=== PATIENT | male | born 1960 | race Caucasian/White ===

== ENCOUNTER 2018-09-04 12:24 | Inpatient (IN) | payer OTHER ==
[~2018-09-04] VITALS: Ht 188 cm; Wt 120.6 kg
[2018-09-04] MEDS ORDERED: SODIUM CHLORIDE 0.9% 1,000 ML IV ONE (12:53)
[2018-09-04] MEDS ORDERED: ASPirin 81 mg TAB PO ONE (13:00)
[2018-09-04 13:33] LABS: Basophils # (auto) 0 uL; Basophils % (auto) 0.2 % (0.0-2.0); Eosinophils # (auto) 0.2 uL; Eosinophils % (auto) 1.3 % (0.0-7.0); Hematocrit 43.6 % (41.0-53.0); Hemoglobin 14.9 g/dL (13.5-17.5); Lymphocytes # (auto) 0.9 uL; Lymphocytes % (auto) 6.9 % (10.0-50.0); Mean Corpuscular Hemoglobin 31.8 pg (28.0-32.0); Mean Corpuscular Hgb Conc. 34.3 g/dL (32.0-36.0); Mean Corpuscular Volume 92.7 fL (80.0-100.0); Monocytes # (auto) 0.7 uL; Monocytes % (auto) 5.6 % (0.0-12.0); Neutrophils # (auto) 11.3 uL; Nucleated Red Blood Cells % 0.3 %; Platelet Count (auto) 151 10^3/uL (140-450); White Blood Cell 13.1 10^3/uL (4.4-10.8)
[2018-09-04 13:50] LABS: INR 1.08 (0.9-1.15)
[2018-09-04 14:27] LABS: Alanine Aminotransferase 26 U/L (16-61); Albumin 3.5 g/dL (3.4-5.0); Anion Gap 7 (5-15); Aspartate Aminotransferase 15 U/L (15-37); BUN/Creatinine Ratio 16.7; Blood Urea Nitrogen 22 mg/dL (7-18); Calcium 8.3 mg/dL (8.5-10.1); Carbon Dioxide 22 mmol/L (21-32); Chloride 110 mmol/L (98-107); GFR African American 71 mL/min; GFR Non-African American 59 mL/min; Glucose 148 mg/dL (74-106); Potassium 3.8 mmol/L (3.5-5.1); Sodium 139 mmol/L (136-145)
[2018-09-04 14:30] LABS: Alkaline Phosphatase 63 U/L (45-117); Total Protein 6.4 g/dL (6.4-8.2)
[2018-09-04 16:24] LABS: Urine Bacteria NONE SEEN /hpf (None Seen); Urine Blood Negative /uL (Negative); Urine Mucus FEW (None Seen); Urine Specific Gravity 1.021 (1.001-1.035); Urine WBC 2 /hpf (0 - 3)
[2018-09-04] MEDS ORDERED: ONDANSETRON HCL 4 MG/2 ML VIAL IV PRN (19:15)
[2018-09-04] MEDS ORDERED: HYDROcodone-ACET 5/325MG TAB PO PRN (19:15)
[2018-09-04] MEDS ORDERED: ACETAMINOPHEN 500 MG TAB PO PRN (19:15)
[2018-09-04] MEDS ORDERED: MORPHINE SULF INJ 2 MG/ML SYRINGE 1ML IV PRN ×2 (19:15)
[2018-09-04 21:14] VITALS: BP 138/84
--- NOTE | 2018-09-04 21:35 | NUR ---
Telemetry admit from [facility] admitted to Telemetry unit. Patient oriented to Yoselyn Galvez, primary RN, unit, room, bed, and unit policies regarding patient care and visiting hours. Patient now on continuous telemetry monitoring, tele box #[id number] and telemetry reading on arrival to unit is NSR. Patient placed on bedside oxygen, weighed by bedscale and encouraged to call if they need something. All questions and concerns addressed, patient verbalized understanding. Note: patient is alert and oriented x 4. On room air with even and unlabored respirations. No s/s of distress or SOB. IV intact and patent. Patient independently turns in bed and ambulates with steady gait. Patient reports he has chronic angina, reports chest pain 2/10 dull. Bed is low locked position with side rails up x 2 and call light within reach. Instructed on POC and to call for assistance PRN. Will continue to monitor.
[2018-09-04] MEDS: CARVEDILOL 3.125 MG TAB PO SCH (21:42)
[2018-09-04] MEDS ORDERED: RANO1000 PO (21:46)
[2018-09-04] MEDS ORDERED: CARV25TA55 PO (21:46)
[2018-09-04] MEDS ORDERED: AMLO5TAB13 PO (21:46)
[2018-09-04] MEDS ORDERED: LOSA25TA40 PO (21:46)
--- NOTE | 2018-09-04 22:40 | NUR ---
Spoke with ODIN Freitas regarding patient home blood pressure medications patient reports taking blood pressure medication BID, updated med rec. Received new order for clonidine 0.1mg PO q6h PRN for SBP >160.
[2018-09-04] MEDS: NITROGLYCERIN 0.4 MG SL TAB SL PRN (22:47)
[2018-09-04] MEDS ORDERED: cloNIDine HCL 0.1 MG TAB PO PRN (23:00)
[2018-09-05] VITALS: BP 131/79
[2018-09-05] MEDS ORDERED: CLOP75TA41 PO (01:23)
[2018-09-05] MEDS ORDERED: ATO40T PO (01:23)
[2018-09-05] MEDS ORDERED: ISOS60TA24 PO (01:23)
[2018-09-05] MEDS ORDERED: ASPI325T4 PO (01:23)
[2018-09-05] MEDS ORDERED: HCTZ25T PO (01:23)
[2018-09-05] MEDS ORDERED: POTA1TAB61 PO (01:23)
[2018-09-05] MEDS ORDERED: NITR0.4S29 SL (01:23)
[2018-09-05 03:07] LABS: Alcohol, Urine < 3.0 mg/dL (0-5); Amphetamine Screen, Urine NEGATIVE (NEGATIVE); Barbiturate Scree,Urine NEGATIVE (NEGATIVE); Benzodiazephine Screen, Urine NEGATIVE (NEGATIVE); Cannabinoid Screen, Urine POSITIVE (NEGATIVE); Cocaine Screen, Urine NEGATIVE (NEGATIVE); Opiate Scree,Urine NEGATIVE (NEGATIVE); Phencyclidine Screen, Urine NEGATIVE (NEGATIVE)
[2018-09-05] MEDS: NITROGLYCERIN 0.4 MG SL TAB SL PRN (03:33)
[2018-09-05 05:00] VITALS: BP 137/97
[2018-09-05 06:49] LABS: Basophils # (auto) 0 uL; Basophils % (auto) 0.5 % (0.0-2.0); Eosinophils # (auto) 0.2 uL; Eosinophils % (auto) 2.4 % (0.0-7.0); Hematocrit 45.9 % (41.0-53.0); Lymphocytes # (auto) 1.4 uL; Lymphocytes % (auto) 19.9 % (10.0-50.0); Mean Corpuscular Hemoglobin 32.2 pg (28.0-32.0); Mean Corpuscular Hgb Conc. 34.8 g/dL (32.0-36.0); Mean Corpuscular Volume 92.6 fL (80.0-100.0); Monocytes # (auto) 0.6 uL; Monocytes % (auto) 7.8 % (0.0-12.0); Neutrophils % (auto) 69.4 % (37.0-80.0); Nucleated Red Blood Cells % 0.3 %; Platelet Count (auto) 172 10^3/uL (140-450); Red Blood Cells 4.96 10^6/uL (4.5-5.90); Red Cell Distribution Width 13.8 % (11.8-14.3); White Blood Cell 7.2 10^3/uL (4.4-10.8)
[2018-09-05 06:53] LABS: BUN/Creatinine Ratio 13.4; Calcium 9.2 mg/dL (8.5-10.1); Potassium 3.7 mmol/L (3.5-5.1)
--- NOTE | 2018-09-05 07:01 | NUR ---
Closing Note patient resting in bed on room air with even and unlabored respirations. no s/s of distress. endorsed care to day shift RN.
--- NOTE | 2018-09-05 08:00 | NUR ---
patient educated on fall risk. patient acknowledges education but wants to ambulate independently and thru the halls.
[2018-09-05 08:34] VITALS: BP 159/88
[2018-09-05] MEDS: CARVEDILOL 3.125 MG TAB PO SCH (09:05)
[2018-09-05] MEDS ORDERED: ISOSORBIDE MONONITRATE 60 MG TAB PO SCH (10:00)
[2018-09-05] MEDS ORDERED: LOSARTAN POTASSIUM 25 MG TAB PO SCH (10:00)
[2018-09-05 12:50] VITALS: BP 152/96
[2018-09-05 17:00] VITALS: BP 129/92
--- NOTE | 2018-09-05 19:35 | NUR ---
Opening Shift Note Assumed care of patient, awake and alert, oriented x 4. on room air with even and unlabored respirations. patient denies CP and dizziness. No S/S of distress/SOB or pain. Bed low locked position with side rails up x 2 and call light within reach. Instructed on POC and to call for assist PRN, will continue to monitor for changes Q1hr and PRN.
[2018-09-05 21:45] VITALS: BP 139/96
[2018-09-05] MEDS: ATORVASTATIN 20 MG TAB PO SCH (22:27)
[2018-09-06 06:00] VITALS: BP 154/80
--- NOTE | 2018-09-06 07:06 | NUR ---
Closing Note patient resting in bed on room air with even and unlabored respirations. no s/s of distress. endorsed care to day shift RN.
--- NOTE | 2018-09-06 08:00 | NUR ---
Morning note patient resting in bed with even and unlabored respirations, no distress noted. Instructed patient on POC, fall precautions and to call for assistance. Patient verbalized understanding. Fall precautions in place, call light within reach. Will continue to monitor q1hr & PRN.
[2018-09-06] MEDS: ASPirin-EC 325mg tab PO SCH (08:59)
[2018-09-06] MEDS: CLOPIDOGREL BISULFATE 75 MG TAB PO SCH (08:59)
[2018-09-06 09:00] VITALS: BP 147/99
[2018-09-06] MEDS: ISOSORBIDE MONONITRATE 60 MG TAB PO SCH (09:00)
[2018-09-06] MEDS: NITROGLYCERIN 0.4 MG SL TAB SL PRN (09:02)
--- NOTE | 2018-09-06 09:15 | NUR ---
RE: telemonitor statement Patient stated "I removed the telemonitor pads yesterday to see how long it would take for staff to notice." Educated patient on telemetry monitoring. Patient verbalized understanding. All leads in place at this time.
[2018-09-06] MEDS: LOSARTAN POTASSIUM 50 MG TAB PO SCH (10:00)
[2018-09-06] MEDS ORDERED: LOSARTAN POTASSIUM 25 MG TAB PO SCH (10:00)
[2018-09-06] MEDS ORDERED: amLODIPine BESYLATE 5 MG TAB PO SCH (10:00)
--- NOTE | 2018-09-06 11:57 | NUR ---
Patient educated on fall prevention Patient stated "I'm not ashamed to get down to the ground when I feel myself passing out. I've laid my head on the floor at the grocery store numerous times. Even if my heart was to stop, I know I would have at least 5-10 seconds to get down to the ground safely." Instructed patient to use fall precautions and maintain bedrest due to admitting diagnosis. Patient verbalized understanding and stated "I need to walk or else my legs start cramping." Will continue to monitor q1hr & PRN.
[2018-09-06 12:00] VITALS: BP 167/101
--- NOTE | 2018-09-06 12:29 | NUR ---
Spoke with die press operator - Dr. Paulino
[2018-09-06] MEDS ORDERED: RANOLAZINE ER 500 MG TAB PO ONE (12:45)
--- NOTE | 2018-09-06 13:17 | NUR ---
was at bedside - Dr. Paulino
--- NOTE | 2018-09-06 13:17 | NUR ---
Care endorsed to LENIN Melo.
[2018-09-06 17:00] VITALS: BP 119/78
[2018-09-06] MEDS: RANOLAZINE ER 500 MG TAB PO SCH (21:29)
[2018-09-06] MEDS: ATORVASTATIN 20 MG TAB PO SCH (21:29)
[2018-09-06] MEDS: CARVEDILOL 3.125 MG TAB PO SCH (21:31)
[2018-09-06] MEDS ORDERED: LANS15CA21 PO (21:38)
[2018-09-06] MEDS: PANTOPRAZOLE 40 MG TAB PO SCH (21:53)
[2018-09-06 22:00] VITALS: BP 135/89
[2018-09-07 05:28] VITALS: BP 128/79
--- NOTE | 2018-09-07 07:08 | NUR ---
Opening Shift Note Assumed care of patient, awake and alert. No S/S of distress/SOB or pain. Instructed on POC and to call for assist PRN, will continue to monitor for changes Q1hr and PRN.
[2018-09-07 08:58] VITALS: BP 143/96
--- NOTE | 2018-09-07 09:32 | NUR ---
CHEST PAIN Patient complained of substernal chest pain, shoulder numbness, and tingling down left arm. No distress noted. Patient denies SOB or other s/s. VS WNL. EKG obtained and shown to Dr. Segura. ordered nitroglycerin SL. 1 dose of nitroglycerin administered. Patient stated chest pain subsided.
[2018-09-07] MEDS ORDERED: NITROGLYCERIN 0.4 MG SL TAB SL ONE (09:37)
[2018-09-07] MEDS ORDERED: NITROGLYCERIN 0.4 MG SL TAB SL PRN (09:45)
[2018-09-07] MEDS: RANOLAZINE ER 500 MG TAB PO SCH ×2 (10:17→21:40)
[2018-09-07] MEDS: ASPirin-EC 325mg tab PO SCH (10:17)
[2018-09-07] MEDS: PANTOPRAZOLE 40 MG TAB PO SCH (10:17)
[2018-09-07] MEDS: CARVEDILOL 3.125 MG TAB PO SCH ×2 (10:18→21:41)
[2018-09-07] MEDS: CLOPIDOGREL BISULFATE 75 MG TAB PO SCH (10:18)
[2018-09-07] MEDS: ISOSORBIDE MONONITRATE 60 MG TAB PO SCH (10:19)
[2018-09-07] MEDS: amLODIPine BESYLATE 5 MG TAB PO SCH (10:19)
[2018-09-07] MEDS: LOSARTAN POTASSIUM 50 MG TAB PO SCH (10:20)
[2018-09-07 13:00] VITALS: BP 128/75
[2018-09-07 17:00] VITALS: BP 140/93
--- NOTE | 2018-09-07 19:28 | NUR ---
Change of shift given to men's basketball coach RN. No distress noted.
[2018-09-07] MEDS: ATORVASTATIN 20 MG TAB PO SCH (21:40)
[2018-09-07 22:47] VITALS: BP 127/77
[2018-09-08 04:43] VITALS: BP 110/71
--- NOTE | 2018-09-08 08:00 | NUR ---
Opening Shift Note Assumed care of patient, awake, alert and oriented X4. No S/S of distress/SOB or pain. Tele# 36, sinus rhythm @ 64 bpm. IV to left hand, 22 gauge, patent and saline locked. Instructed on POC and to call for assist PRN, verbalized understanding. Bed locked, in lowest position, call light within reach, will continue to monitor for changes Q1hr and PRN.
[2018-09-08 09:20] VITALS: BP 123/80
--- NOTE | 2018-09-08 11:00 | NUR ---
ROUNDS Dr Shahnaz Segura at bedside for rounds, new orders received and followed through. Patient updated on plan of care, verbalized understanding.
[2018-09-08 12:05] VITALS: BP 116/77
[2018-09-08] MEDS: CARVEDILOL 3.125 MG TAB PO SCH ×2 (12:26→22:02)
[2018-09-08] MEDS: LOSARTAN POTASSIUM 50 MG TAB PO SCH (12:26)
[2018-09-08] MEDS: amLODIPine BESYLATE 5 MG TAB PO SCH (12:27)
[2018-09-08] MEDS: ISOSORBIDE MONONITRATE 60 MG TAB PO SCH (12:27)
[2018-09-08] MEDS: ASPirin-EC 325mg tab PO SCH (12:27)
[2018-09-08] MEDS: CLOPIDOGREL BISULFATE 75 MG TAB PO SCH (12:27)
[2018-09-08] MEDS: PANTOPRAZOLE 40 MG TAB PO SCH (12:28)
[2018-09-08] MEDS: RANOLAZINE ER 500 MG TAB PO SCH ×2 (12:28→22:01)
[2018-09-08 17:11] VITALS: BP 107/62
--- NOTE | 2018-09-08 19:21 | NUR ---
Care endorsed to LENIN Vigil, night nurse.
[2018-09-08 22:00] VITALS: BP 158/86
[2018-09-08] MEDS: ATORVASTATIN 20 MG TAB PO SCH (22:01)
--- NOTE | 2018-09-09 | NUR ---
PATIENT PLACED NPO FOR HEART CATHERIZATION
[2018-09-09 05:00] VITALS: BP 117/80
--- NOTE | 2018-09-09 07:45 | NUR ---
OPENING NOTE OBSERVED PT SITTING UP IN BED, NO SOB/DISTRESS NOTED. PT DENIES ANY PAIN AT THIS TIME. PT EXPRESSING FRUSTRATION WITH COURSE OF HOSPITALIZATION, STATING HE HAS BEEN 'ILL INFORMED' ABOUT WHAT THE ACTUAL PLAN IS FOR HIM. SAYS HE HAS BEEN IN THE HOSPITAL 'TOO LONG'. ACKNOWLEDGED PATIENTS CONCERNS, AND INFORMED HIM I WOULD CONTACT MANUFACTURING SUPERVISOR TO DETERMINE WHETHER OR NOT HE WAS ON SCHEDULE FOR TODAY. PT VERBALIZED UNDERSTANDING. CALL LIGHT WITHIN REACH. FALL PRECAUTIONS IN PLACE. WILL CONTINUE TO MONITOR Q1H AND PRN. CONTINUE PT CARE.
--- NOTE | 2018-09-09 08:00 | NUR ---
PAGED/CALLED SPECIAL DELIVERY MESSENGER CALLED SPECIAL DELIVERY MESSENGER TO DETERMINE WHETHER OR NOT [facility] WAS ON SCHEDULE FOR [facility]. PATIENT IS NOT ON SCHEDULE FOR PROCEDURE. CALL OUT TO DR. RO FOR FURTHER ORDERS/POC. WAITING ON RESPONSE.
--- NOTE | 2018-09-09 08:15 | NUR ---
RETURNED PAGE DR. RO RETURNED PAGE. PER DR. RO, PATIENT NOT SCHEDULED FOR [facility] AT THIS TIME. MD STATING PATIENT HAD PREVIOUSLY STATED THAT HE WAS WANTING TIME TO CONSIDER HIS OPTIONS AND THAT MEDICAL MANAGEMENT WAS CHOSEN CHOICE. MD PROVIDED WITH RECENT BLOOD PRESSURE AND HEART RATE RECORDINGS. PER DR. RO, FAR HE IS CONCERNED PATIENT CAN BE DISCHARGED HOME WITH CURRENTLY PRESCRIBED MEDICATION REGIMEN. OK TO RESUME DIET. NO FURTHER ORDERS RECEIVED AT THIS TIME.
--- NOTE | 2018-09-09 08:20 | NUR ---
SPOKE TO PT SPOKE TO PT REGARDING CONVERSATION WITH DR. RO. PT VERBALIZED UNDERSTANDING, BUT CONTINUES TO EXPRESS FRUSTRATION WITH COURSE OF HOSPITALIZATION. PT ASKING, "WILL I SEE A DOCTOR TODAY"? INFORMED PT THAT HE WILL BE SEEN BY A HOSPITALIST. PT VERBALIZED UNDERSTANDING. PT STATING IF 'NOTHINGS GOING TO HAPPEN, I MAY JUST GO HOME AND SEE MY OWN PATIENT ACCOUNTING REPRESENTATIVE'. WILL CONTINUE TO MONITOR.
[2018-09-09 08:58] VITALS: BP 139/93
[2018-09-09] MEDS: LOSARTAN POTASSIUM 50 MG TAB PO SCH (09:19)
[2018-09-09] MEDS: CARVEDILOL 3.125 MG TAB PO SCH (09:19)
[2018-09-09] MEDS: ISOSORBIDE MONONITRATE 60 MG TAB PO SCH (09:19)
[2018-09-09] MEDS: ASPirin-EC 325mg tab PO SCH (09:19)
[2018-09-09] MEDS: amLODIPine BESYLATE 5 MG TAB PO SCH (09:20)
[2018-09-09] MEDS: CLOPIDOGREL BISULFATE 75 MG TAB PO SCH (09:20)
[2018-09-09] MEDS: RANOLAZINE ER 500 MG TAB PO SCH (09:20)
[2018-09-09] MEDS: PANTOPRAZOLE 40 MG TAB PO SCH (09:20)
--- NOTE | 2018-09-09 10:48 | NUR ---
BLOOD PRESSURE REASSESSED BP REASSESSED FOLLOWING 1000 MEDICATION ADMINISTRATION. BP CURRENTLY 115/66, HEART RATE 77. PT CONTINUES TO DENY ANGINA AT THIS TIME. WILL CONTINUE TO MONITOR.
--- NOTE | 2018-09-09 11:33 | NUR ---
CARDIAC CLEARANCE DR. RO AT BEDSIDE. STATING PATIENT IS CLEARED FOR DISCHARGE.
[2018-09-09 12:41] VITALS: BP 128/82
[2018-09-09 14:30] VITALS: BP 115/66
--- NOTE | 2018-09-09 14:32 | NUR ---
AT BEDSIDE DR. PINEDA AT BEDSIDE DISCUSSING DC PLANS/POC WITH PT. PT AGREEABLE AND VERBALIZED UNDERSTANDING.
--- NOTE | 2018-09-09 15:26 | NUR ---
Discharge instructions given as ordered. Encourage to follow up with PMD as instructed. All questions and concerns addressed. Patient verbalized understanding. Medication reconciliation form completed and copy given to patient. IV removed with catheter intact, pressure dressing applied. Telemetry unit returned to ICU. Patient offered wheelchair, refused. Pt ambulated off unit with all personal belongings, accompanied by family members. No distress noted at time of departure.
== END 2018-09-09 15:26 | disposition home or self-care (01) | DRG 312 ==
LOC: EDBD 12:24 → ER 12:24 → TELE 19:16 → TELE-WESTW 21:28
PROVIDERS: ADMIT Nurse Practitioner Acute Care; ATTEND Family Medicine
DX: R55 Syncope and collapse (principal); R00.1 Bradycardia, unspecified; E78.5 Hyperlipidemia, unspecified; D72.829 Elevated white blood cell count, unspecified; E66.9 Obesity, unspecified; I25.119 Atherosclerotic heart disease of native coronary artery with unspecified angina pectoris; E11.21 Type 2 diabetes mellitus with diabetic nephropathy; I10 Essential (primary) hypertension; I25.2 Old myocardial infarction; Z95.5 Presence of coronary angioplasty implant and graft; Z79.82 Long term (current) use of aspirin; Z82.49 Family history of ischemic heart disease and other diseases of the circulatory system; Z79.899 Other long term (current) drug therapy; Z68.34 Body mass index [BMI] 34.0-34.9, adult
CPT/HCPCS: 36415; 71046; 80048; 80053; 80061; 80307; 81001; 83036; 83735; 83880; 84443; 84484; 85025; 85379; 85610; 85730; 93005; 93306; 94761; G0378